=== PATIENT | female | born 1940 | race Caucasian/White ===

== ENCOUNTER 2021-10-04 20:41 | Emergency (ER) | payer MEDICARE, OTHER ==
[2021-10-05 00:01] LABS: BASOPHIL 0.2 % (0-2); HCT 37.6 % (37.0-47.0); HGB 12.4 g/dl (12.5-16.0); LYMPHOCYTE 9.3 % (15-48); MCH 29.1 pg (25.0-31.0); MCV 88.3 fL (78.0-100.0); MONOCYTE 8.3 % (0-12); MPV 10.3 fL (6.0-9.5); NEUTROPHIL 79.8 % (41-80); NRBC 0; PLT 162 K/uL (150-400); RBC 4.26 M/uL (4.20-5.40); RDW 14.4 % (11.5-14.0); WBC 5.1 K/uL (4.0-10.5)
[2021-10-05 00:27] LABS: ALBUMIN 3.2 g/dL (3.4-5.0); BILIRUBIN - TOTAL 0.7 mg/dL (0.2-1.0); BUN/CREAT RATIO (CALC) 29.2 RATIO; CREATININE 0.72 mg/dL (0.51-0.95); GLOBULIN (CALCULATION) 3.4 g/dL; POTASSIUM 4.5 mmol/L (3.5-5.1); TOTAL PROTEIN 6.6 g/dL (6.4-8.2)
== END 2021-10-05 01:30 | disposition home or self-care (01) ==
LOC: FER 20:41
PROVIDERS: Internal Medicine
DX: R41.0 Disorientation, unspecified (principal); M25.562 Pain in left knee; D35.00 Benign neoplasm of unspecified adrenal gland; Z88.0 Allergy status to penicillin; Z88.2 Allergy status to sulfonamides
CPT/HCPCS: 36415; 70450; 71250; 73560; 80053; 83605; 83690; 84145; 84484; 85025; 93005